=== PATIENT | female | born 1990 | race Caucasian/White ===

== ENCOUNTER 2019-01-26 15:04 | Emergency (ER) | payer OTHER ==
[~2019-01-26] VITALS: Ht 160 cm; Wt 48.9 kg
[2019-01-26 15:06] VITALS: Ht 160 cm; Wt 48.9 kg
--- NOTE | 2019-01-26 15:49 | ERD ---
ER Documentation Chief Complaint Chief Complaint ABCESS ON RT ARM X 2 DAYS HPI Patient is a 28 years old female with no known past medical history presenting to the clinic with painful lump on proximal arm near the axilla X 2 days. Patient denies any fever, chills, night sweats. Patient states that the lump came about suddenly and has been growing over the past 2 days. Patient currently states the pain is excruciatingly painful and rates it 12 out of 10. Patient states that she will have a family member pick her up from the hospital to take her home. ROS All systems reviewed and are negative except as per history of present illness. Medications Home Meds Active Scripts Sulfamethoxazole/Trimethoprim* (Bactrim Ds* Tablet) 1 Each Tablet, 1 TAB PO BID for 7 Days, #14 TAB Prov:OTILIA MARTINI MD 01/28/19 Cephalexin* (Keflex*) 500 Mg Capsule, 500 MG PO QID for 5 Days, CAP Prov:MARKO MELGAR PA-C 01/26/19 Meloxicam* (Meloxicam*) 7.5 Mg Tablet, 7.5 MG PO DAILY, #30 TAB Prov:MARKO MELGAR PA-C 01/26/19 Allergies Allergies: Coded Allergies: No Known Allergy (Unverified , 01/26/19) PMhx/Soc Medical and Surgical Hx: pt denies Medical Hx, pt denies Surgical Hx History of Surgery: No Anesthesia Reaction: No Hx Neurological Disorder: No Hx Respiratory Disorders: No Hx Cardiac Disorders: No Hx Psychiatric Problems: No Hx Miscellaneous Medical Probl: No Hx Alcohol Use: No Hx Substance Use: No Hx Tobacco Use: No Smoking Status: Never smoker FmHx Family History: No diabetes, No coronary disease, No other Physical Exam Vitals Vital Signs Date Temp Pulse Resp B/P (MAP) Pulse Ox O2 O2 Flow FiO2 Time Delivery Rate 01/26/19 98.2 89 18 128/69 99 Room Air 16:46 (88) 01/26/19 97.8 110 18 133/64 99 15:06 (87) Physical Exam Const: No acute distress Head: Atraumatic Eyes: Normal Conjunctiva Ext: No cyanosis, or edema Neur: Awake and alert Psych: Normal Mood and Affect Right Arm/Axilla Exam: Severely tender lump on proximal arm near axilla. Results 24 hrs Current Medications Medications Dose Sig/Marco Start Time Status Last (Trade) Ordered Route PRN Stop Time Admin Dose Reason Admin Lidocaine 20 ml ONCE ONCE 01/26/19 DC (Xylocaine SC 16:00 1% (Mdv) 20 01/26/19 16:01 ml) 1 tab ONCE ONCE 01/26/19 DC 01/26/19 Acetaminophen PO 16:00 16:01 / 01/26/19 16:01 Hydrocodone Bitart ([place] (325)) Procedures/MDM Patient has been evaluated for painful lump on right arm borderline axilla. Lump is most significant of an abscess. I&D performed without any complications. 2 cc of pus drained with success. Iodine packing strips were placed followed by wound clean. Patient has been informed to follow-up in 2 days for wound checkup. Patient is stable and will be discharged with meloxicam, Keflex. Departure Diagnosis: Primary Impression: Acute abscess Condition: Stable Referrals: [facility] Additional Instructions: Patient has been instructed to follow-up in 2 days for wound checkup. Patient advised to return to the ED immediately for new or worsening symptoms. Patient advised to follow up with primary care provider in the next 24-48 hours. Patient verbalized understanding and agrees with treatment plan and course of action. If patient has no primary care they may follow up with [facility] + [facility] [address] [place] [address] or [facility] [address] [place] [address] or [facility] [address] [place] [address] MARKO MELGAR PA-C January 26, 2019 15:49
[2019-01-26] MEDS ORDERED: HYDROCODONE/APAP (5/325) TAB PO ONE (16:00)
[2019-01-26] MEDS ORDERED: LIDOCAINE 1% (MDV) 20 ML INJ SC ONE (16:00)
[2019-01-26] MEDS ORDERED: CEPH-443 PO (16:35)
[2019-01-26] MEDS ORDERED: MELO7.5T38 PO (16:35)
[2019-01-26 16:46] VITALS: BP 128/69; PULSE 89; RESP 18
== END 2019-01-26 16:49 | disposition home or self-care (01) ==
LOC: FTE 15:04
DX: L02.411 Cutaneous abscess of right axilla (principal)
CPT/HCPCS: 10060; Z7502; Z7610

== ENCOUNTER 2019-01-28 11:46 | Emergency (ER) | payer OTHER ==
[~2019-01-28] VITALS: Wt 48.4 kg
[~2019-01-28 11:46] MED LIST: CEPH-443 PO; MELO7.5T38 PO
[2019-01-28 11:51] VITALS: BP 121/64; PULSE 98; RESP 17
[2019-01-28] MEDS ORDERED: KETOROLAC 15 MG INJ IV STA (12:54)
[2019-01-28] MEDS ORDERED: CEFTRIAXONE 1 GM/50 ML (PMX) 50 ML IVPB STA (12:54)
[2019-01-28] MEDS ORDERED: TRIMETHOPRIM/SULFAMETHOX (DS) TAB PO ONE (13:00)
[2019-01-28] MEDS ORDERED: SULF1TAB31 PO (14:08)
--- NOTE | 2019-01-28 14:12 | ERD ---
ER Documentation Chief Complaint Chief Complaint WOUND CHECK ON RIGHT UPPER ARM ABCESS I&D HPI 28-year-old female presents for recheck on her right triceps area abscess incised and drained 2 days ago. She has not picked up her antibiotics as prescribed. She denies any fevers, vomiting. She is noticed some redness extending distally from the wound to her forearm. Patient denies any injection drug use or inciting events. ROS All systems reviewed and are negative except as per history of present illness. Medications Home Meds Active Scripts Sulfamethoxazole/Trimethoprim* (Bactrim Ds* Tablet) 1 Each Tablet, 1 TAB PO BID for 7 Days, #14 TAB Prov:OTILIA MARTINI MD 01/28/19 Cephalexin* (Keflex*) 500 Mg Capsule, 500 MG PO QID for 5 Days, CAP Prov:MARKO MELGAR PA-C 01/26/19 Meloxicam* (Meloxicam*) 7.5 Mg Tablet, 7.5 MG PO DAILY, #30 TAB Prov:MARKO MELGAR PA-C 01/26/19 Allergies Allergies: Coded Allergies: No Known Allergy (Unverified , 01/26/19) PMhx/Soc Medical and Surgical Hx: pt denies Medical Hx, pt denies Surgical Hx History of Surgery: No Anesthesia Reaction: No Hx Neurological Disorder: No Hx Respiratory Disorders: No Hx Cardiac Disorders: No Hx Psychiatric Problems: No Hx Miscellaneous Medical Probl: No Hx Alcohol Use: No Hx Substance Use: No Hx Tobacco Use: No Smoking Status: Never smoker FmHx Family History: No diabetes, No coronary disease, No other Physical Exam Vitals Vital Signs Date Temp Pulse Resp B/P (MAP) Pulse Ox O2 O2 Flow FiO2 Time Delivery Rate 01/28/19 98.7 98 17 121/64 100 11:51 (83) Physical Exam Const: No acute distress Head: Atraumatic Eyes: Normal Conjunctiva ENT: Normal External Ears, Nose and Mouth. Neck: Full range of motion. No meningismus. Resp: Clear to auscultation bilaterally Cardio: Regular rate and rhythm, no murmurs Abd: Soft, non tender, non distended. Normal bowel sounds Skin: No petechiae or rashes. Healing incision and drainage area x2 in the right triceps area. Small amount of pus was expressed. There is some extension of some erythema and warmth extending to her right forearm. Pulses are 2+ distally. Right upper extremity is neurovascular intact. Back: No midline or flank tenderness Ext: No cyanosis, or edema Neur: Awake and alert Psych: Normal Mood and Affect Results 24 hrs Current Medications Medications Dose Sig/Marco Start Time Status Last (Trade) Ordered Route PRN Stop Time Admin Dose Reason Admin Ketorolac 15 mg ONCE STAT 01/28/19 DC 01/28/19 Tromethamine IV 12:54 13:42 (Toradol) 01/28/19 12:56 Ceftriaxone 50 ml @ ONCE STAT 01/28/19 DC 01/28/19 Sodium 100 mls/hr IVPB 12:54 13:21 01/28/19 13:23 1 tab ONCE ONCE 01/28/19 DC 01/28/19 Trimethoprim/ PO 13:00 13:21 01/28/19 13:01 Sulfamethoxaz ole (Bactrim (Ds)) Procedures/MDM Patient presents for recheck, incision and drainage of her right upper arm abscess. She has not picked up her antibiotics and there is appears to be an extension of cellulitis. No signs of severe sepsis. She is well-appearing without fever, vomiting. No signs of ischemia, deficits. Doubt DVT. She was given Rocephin 1 g IV as well as Bactrim double strength by mouth. Patient will be discharged home with continuation of wound care after gauze was removed today. We will add Bactrim to her outpatient antibiotic regimen as well. She should recheck it again an additional 2 to 3 days otherwise sooner for worsening redness, fevers, vomiting, new worsening symptoms. Departure Diagnosis: Primary Impression: Cellulitis Site of cellulitis: extremity Site of cellulitis of extremity: upper extremity Laterality: right Qualified Codes: L03.113 - Cellulitis of right upper limb Additional Impression: Encounter for wound re-check Condition: Stable Patient Instructions: Cellulitis Additional Instructions: Recheck again in 2 to 3 days. Apply warm compresses. Recheck sooner for worsening redness, fevers, vomiting, new worsening symptoms. Start antibiotics as prescribed. OTILIA MARTINI MD January 28, 2019 14:12
== END 2019-01-28 14:20 | disposition home or self-care (01) ==
LOC: FTE 11:46
DX: L03.113 Cellulitis of right upper limb (principal)
CPT/HCPCS: 96365; 96375; J0696; J1885; Z7502; Z7610

== ENCOUNTER 2019-01-31 10:38 | Emergency (ER) | payer OTHER ==
[~2019-01-31] VITALS: Ht 160 cm; Wt 48.1 kg
[~2019-01-31 10:38] MED LIST changes: +SULF1TAB31 PO
[2019-01-31 10:42] VITALS: BP 109/63; PULSE 90; RESP 18; Ht 160 cm; Wt 48.1 kg
--- NOTE | 2019-01-31 12:10 | ERD ---
ER Documentation Chief Complaint Chief Complaint WOUND CHECK FOR ABSCESS TODAY IS THE THIRD DAY HPI 28-year-old female patient with no significant past medical history presents to the ED for a wound check for an abscess that was drained in her right axilla on January 26, 2018. Patient initially stated that she did not get to fill her antibiotics, however has been taking both Keflex and Bactrim consistently and has seen tremendous improvement of the redness of her right arm. States that the pain has also improved. Denies any chest pain, shortness of breath, nausea, vomiting, diarrhea, neck stiffness, increased swelling. ROS All systems reviewed and are negative except as per history of present illness. Medications Home Meds Active Scripts Sulfamethoxazole/Trimethoprim* (Bactrim Ds* Tablet) 1 Each Tablet, 1 TAB PO BID for 7 Days, #14 TAB Prov:OTILIA MARTINI MD 01/28/19 Cephalexin* (Keflex*) 500 Mg Capsule, 500 MG PO QID for 5 Days, CAP Prov:MARKO MELGAR PA-C 01/26/19 Meloxicam* (Meloxicam*) 7.5 Mg Tablet, 7.5 MG PO DAILY, #30 TAB Prov:MARKO MELGAR PA-C 01/26/19 Allergies Allergies: Coded Allergies: No Known Allergy (Unverified , 01/26/19) PMhx/Soc History of Surgery: No Anesthesia Reaction: No Hx Neurological Disorder: No Hx Respiratory Disorders: No Hx Cardiac Disorders: No Hx Psychiatric Problems: No Hx Miscellaneous Medical Probl: No Hx Alcohol Use: No Hx Substance Use: No Hx Tobacco Use: No FmHx Family History: No diabetes, No coronary disease Physical Exam Vitals Vital Signs Date Temp Pulse Resp B/P (MAP) Pulse Ox O2 O2 Flow FiO2 Time Delivery Rate 01/31/19 97.8 90 18 109/63 100 10:42 (78) Physical Exam Const: Omu-col-noejcsfeu, well-nourished. In no acute distress. Head: Atraumatic, normocephalic Eyes: Normal Conjunctiva without injection ENT: Normal external ear, nose and mouth. Neck: Full range of motion. No meningismus. Resp: Clear to auscultation bilaterally. No wheezing, rhonchi, rales, or crackles. No accessory muscle use. No retractions. Cardio: Regular rate and rhythm, no murmurs Skin: No petechiae or rashes Back: No midline tenderness. No CVA tenderness. Ext: No cyanosis, or edema. Cap refill less than 2 seconds. Distal pulses intact bilaterally. Well-healing 1 cm incision noted of the right axilla with minimal surrounding erythema. Minimal purulent discharge. No bleeding noted. Full range of motion of right shoulder with flexion, extension, internal and external rotation. All other joints have full range of motion. Neur: Awake and alert. Normal gait and coordination. Muscle strength 5/5. Sensation intact bilaterally. Psych: Normal Mood and Affect Procedures/MDM 28-year-old female patient with no significant past medical history presents to the ED for a wound check of the right axilla for an incision and drainage of an abscess that was drained on January 26, 2018. Patient is afebrile and nontoxic- appearing. Well-healing abscess with minimal purulent discharge and bleeding. Low suspicion for deep space infection, sepsis, septic arthritis, DVT, or other emergent conditions.Instructed patient to complete the course of Bactrim and Keflex. Wound care was performed here in the ED. Follow up with primary care physician in 1-2 days. Instructed patient to return to the ED sooner for any worsening symptoms. Patient's questions were answered. Patient is hemodynamically stable. Patient understood and agreed with discharge plan. Azalia ent discharged stable. Disclaimer: Inadvertent spelling and grammatical errors are likely due to EHR/dictation software use and do not reflect on the overall quality of patient care. Also, please note that the electronic time recorded on this note does not necessarily reflect the actual time of the patient encounter. Departure Diagnosis: Primary Impression: Encounter for wound re-check Condition: Stable Patient Instructions: Wound Care Referrals: COMMUNITY CLINICS YOU HAVE RECEIVED A MEDICAL SCREENING EXAM AND THE RESULTS INDICATE THAT YOU DO NOT HAVE A CONDITION THAT REQUIRES URGENT TREATMENT IN THE EMERGENCY DEPARTMENT. FURTHER EVALUATION AND TREATMENT OF YOUR CONDITION CAN WAIT UNTIL YOU ARE SEEN IN YOUR DOCTORS OFFICE WITHIN THE NEXT 1-2 DAYS. IT IS YOUR RESPONSIBILITY TO MAKE AN APPOINTMENT FOR FOLOW-UP CARE. IF YOU HAVE A PRIMARY DOCTOR --you should call your primary doctor and schedule an appointment IF YOU DO NOT HAVE A PRIMARY DOCTOR YOU CAN CALL OUR PHYSICIAN REFERRAL HOTLINE AT IF YOU CAN NOT AFFORD TO SEE A PHYSICIAN YOU CAN CHOSE FROM THE FOLLOWING COMM[facility] CLINICS [facility] [address] [facility] [address] [facility] [address] [facility] [address] [facility] [address] [facility]. [facility] [address] [facility]. [facility] YOU HAVE RECEIVED A MEDICAL SCREENING EXAM AND THE RESULTS INDICATE THAT YOU DO NOT HAVE A CONDITION THAT REQUIRES URGENT TREATMENT IN THE EMERGENCY DEPARTMENT. FURTHER EVALUATION AND TREATMENT OF YOUR CONDITION CAN WAIT UNTIL YOU ARE SEEN IN YOUR DOCTORS OFFICE WITHIN THE NEXT 1-2 DAYS. IT IS YOUR RESPONSIBILITY TO MAKE AN APPOINTMENT FOR FOLOW-UP CARE. IF YOU HAVE A PRIMARY DOCTOR --you should call your primary doctor and schedule and appointment IF YOU DO NOT HAVE A PRIMARY DOCTOR YOU CAN CALL OUR PHYSICIAN REFERRAL HOTLINE AT . IF YOU CAN NOT AFFORD TO SEE A PHYSICIAN YOU CAN CHOSE FROM THE FOLLOWING [facility] INSTITUTIONS: [facility] [address] [place] [address] [facility] [address] [place] [address] [facility] [address] [place] [address] [facility] Additional Instructions: Complete the course of antibiotics. Call your primary care doctor TOMORROW for an appointment during the next 2-3 days.See the doctor sooner or return here if your condition worsens before your appointment time. ADI RILEY PA-C January 31, 2019 12:10
== END 2019-01-31 12:12 | disposition home or self-care (01) ==
LOC: FTE 10:38
DX: Z48.01 Encounter for change or removal of surgical wound dressing (principal)
CPT/HCPCS: 99281